=== PATIENT | female | born 1985 | race Caucasian/White ===

== ENCOUNTER 2023-09-29 18:33 | Emergency (ER) | payer BC ==
[~2023-09-29] VITALS: Ht 162.6 cm; Wt 160.6 kg
[2023-09-29 18:43] VITALS: BP 143/89; PULSE 89; RESP 18; TEMP 98.2; O2SAT 98
[2023-09-29 19:39] LABS: APPEARANCE,URINE TURBID (CLEAR); BILIRUBIN,URINE 1+ (NEGATIVE); BLOOD, URINE 3+ (NEGATIVE); COLOR,URINE YELLOW (YELLOW); LEUKOCYTE ESTERASE ,URINE NEGATIVE (NEGATIVE); NITRITE, URINE NEGATIVE (NEGATIVE); PH,URINE 5.5 (5.0-9.0); PROTEIN,URINE 2+ (NEGATIVE); UGLUCOSE NEGATIVE (NEGATIVE); UROBILINOGEN,URINE 0.2 EU/dL (0.2 - 1)
[2023-09-29 19:51] LABS: ICTOTEST NEGATIVE (NEGATIVE)
[2023-09-29 19:52] LABS: BACTERIA,URINE 1+ /HPF (None Seen); HYALINE CASTS, URINE 0-10 /LPF (None Seen); MUCUS,URINE 1+ /LPF (None Seen); RBC,URINE 50-80 /HPF (0-5); SQUAMOUS EPITHELIAL CELL,UR 4-10 (MOD) /LPF (0-3 (FEW)); TRICHOMONAS,URINE None Seen /HPF (None Seen); WBC,URINE 0-5 /HPF (0-5); YEAST,URINE None Seen /HPF (None Seen)
[2023-09-29 19:54] VITALS: BP 149/77; PULSE 90; RESP 18; O2SAT 99
== END 2023-09-29 21:14 | disposition home or self-care (01) ==
LOC: MED 18:33
DX: T19.2XXA Foreign body in vulva and vagina, initial encounter (principal); W44.8XXA Other foreign body entering into or through a natural orifice, initial encounter
CPT/HCPCS: 81001; 99283; 99284